=== PATIENT | female | born 1935 | race Caucasian/White ===

== ENCOUNTER → 2016-08-02 | Outpatient (CLI) | payer MEDICARE, OTHER, BC ==
--- NOTE | 2016-08-02 10:58 | REPMRS ---
Patient History The patient states she had a clinical breast exam in 07/21 Patient is postmenopausal and has history of colorectal cancer at age 78. No known family history of cancer. Taking estrogen for 9 years. Digital Woman Screen Mammo: August 02, 2016 - Exam #: [id number] Bilateral CC and MLO view(s) were taken. Technologist: Daria Perze, Technologist Prior study comparison: June 15, 2015, digital woman screen mammo performed at [facility]. June 18, 2014, left breast digital mammo diagnostic unilateral, performed at [facility]. FINDINGS: There are scattered fibroglandular densities. There has been no change in the appearance of the mammogram from the prior studies. There is a moderate amount of residual fibroglandular tissue which is fairly symmetric. There is no interval development of dominant mass, architectural distortion, or clustered microcalcification suggestive of malignancy. Scattered lymph nodes are seen in the axillae. There is a benign appearing intramammary node in the upper outer quadrant of the right breast. No significant changes when compared with prior studies. ASSESSMENT: BI-RADS/ACR category 2 mammogram. Benign finding(s). Recommendation Routine screening mammogram in 1 year (for women over age 40). This mammogram was interpreted with the aid of an FDA-approved computer-aided dectection system. A. Negative x-ray reports should not delay biopsy if a dominant or clinically suspicious mass is present. B. Four to eight percent of cancers are not identified by mammography. C. Adenosis and dense breast may obscure an underlying neoplasm. Electronically Signed By: Zachary Hooks MD 08/02/16 [id number]
== END ==
LOC: M WHC 09:28
PROVIDERS: ATTEND Obstetrics & Gynecology Gynecology
DX: Z12.31 Encounter for screening mammogram for malignant neoplasm of breast (principal)

== ENCOUNTER → 2016-09-29 | Outpatient (REF) | payer MEDICARE, OTHER | LOC: M LAB REF 11:41 | PROVIDERS: ATTEND Obstetrics & Gynecology Gynecology | DX: N39.0 Urinary tract infection, site not specified (principal) ==

== ENCOUNTER → 2016-10-06 | Outpatient (REF) | payer MEDICARE, OTHER | LOC: M LAB REF 12:37 | PROVIDERS: ATTEND Obstetrics & Gynecology Gynecology | DX: N39.0 Urinary tract infection, site not specified (principal) ==

== ENCOUNTER → 2017-10-18 | Outpatient (CLI) | payer MEDICARE, OTHER, BC | LOC: M WHC 13:00 | DX: Z12.31 Encounter for screening mammogram for malignant neoplasm of breast (principal) | CPT/HCPCS: 77067 ==

== ENCOUNTER → 2017-11-21 | Outpatient (CLI) | payer MEDICARE, OTHER, BC | LOC: M RAD 09:56 | DX: R92.2 Inconclusive mammogram (principal) | CPT/HCPCS: 77065 ==

== ENCOUNTER → 2018-07-04 | Outpatient (REF) | payer MEDICARE, OTHER ==
[2018-07-04 11:32] LABS: APPEARANCE, URINE HAZY (CLEAR); BACTERIA, URINE AUTO 3+ (NEGATIVE); BILIRUBIN, URINE AUTO NEGATIVE (NEGATIVE); BLOOD, URINE BLOOD NEGATIVE (NEGATIVE); COLOR, URINE YELLOW (YELLOW); GLUCOSE, URINE (UA) AUTO NEGATIVE (NEGATIVE); KETONE, URINE AUTO NEGATIVE (NEGATIVE); LEUKOCYTE ESTERASE, URINE AUTO NEGATIVE (NEGATIVE); NITRITE, URINE AUTO NEGATIVE (NEGATIVE); PROTEIN, URINE AUTO NEGATIVE (NEGATIVE); RBC, URINE AUTO 2 /HPF (0-3); SPECIFIC GRAVITY URINE AUTO 1.019 (1.002-1.035); SQUAMOUS EPITHELIAL CELL UR AU 6 /HPF (0-6); UROBILINOGEN, URINE AUTO 0.2 mg/dL (0.0-2.0); WBC, URINE AUTO 3 /HPF (0-3)
== END ==
LOC: M LAB REF 10:47
PROVIDERS: ATTEND Internal Medicine
DX: R39.9 Unspecified symptoms and signs involving the genitourinary system (principal)

== ENCOUNTER → 2019-06-04 | Outpatient (CLI) | payer MEDICARE, OTHER, BC ==
--- NOTE | 2019-06-04 12:17 | REP ---
BILATERAL SCREENING DIGITAL MAMMOGRAM WITH 3D TOMOSYNTHESIS: There are no palpable abnormalities or other breast complaints. The the patient states she had a clinical breast examination sep, 2018. The Tyrer-Cuzick Score is: 0.7%. The . Comparisons are 05/30/2013 and 10/18/2017 and right breast diagnostic views 11/21/2017. There are scattered areas of fibroglandular density. Of the right breast nodule identified on the screening mammogram dated 10/18/2017 was not present on the diagnostic spot compression views of 11/21/2017, therefore was likely hepatic tissue or a resolved cyst. Is not present on the study today. However, on the study today there is a new 4.4 cm nodule anteriorly in the left breast on the MLO view only. This is not identified on the CC view and cannot be identified on the CC tomograms, therefore may merely be glandular tissue. However, I would recommend follow-up diagnostic views for more assurance. There are no additional findings on 3D tomosynthesiss. Impression: BIRADS/ACR category 0 mammogram. Incomplete. Need additional imaging evaluation and / or prior mammograms for comparison. Recommendation: The patient should return for diagnostic spot compression views of the new left breast nodule on the MLO view only and left breast ultrasound depending on the findings on the diagnostic views. This mammogram was interpreted with the aid of a FDA approved computer-aided detection system. A. Negative mammogram reports should not delay biopsy if a dominant or clinically suspicious mass is present. B. Not all breast cancers are identified by mammography or tomosynthesis. C. Adenosis and dense breasts may obscure an underlying neoplasm. Patient letter M0. Electronically Signed by Guillermo Hernandez MD 06/04/2019 12:09 P
== END ==
LOC: M WHC 10:20
PROVIDERS: ATTEND Obstetrics & Gynecology Gynecology
DX: Z12.31 Encounter for screening mammogram for malignant neoplasm of breast (principal); N63.20 Unspecified lump in the left breast, unspecified quadrant

== ENCOUNTER → 2019-06-13 | Outpatient (CLI) | payer MEDICARE, OTHER, BC ==
--- NOTE | 2019-06-13 11:08 | REP ---
Digital diagnostic unilateral left breast mammography with CAD and focused left breast sonography: History: Screening mammography June 04, 2019 was BIRADS category 0 because of a 4 mm nodular opacity seen in the left superior breast on MLO projection only. This was felt to be new from October 18, 2017 and diagnostic imaging was recommended. Comparison is also made with August 02, 2016 and June 15, 2015 prior mammography. Mammographic findings: Magnified focal spot compression CC, true mediolateral, and MLO views are obtained. The nodular opacity is somewhat less conspicuous but believed to be evident on the MLO and true mediolateral oblique views. It is questionably identified on the CC view. No other mammographically significant finding. It has sharply circumscribed margins. On review of the more remote prior mammography, the MLO view of the June 2015 prior study shows a nodular opacity which is identical. It is not definitely apparent on intervening priors. Sonographic findings: The left breast is scanned sonographically about the 12 o'clock position. Heterogeneous fibroglandular background echotexture is seen. No cyst, mass or acoustic shadowing is seen. Impression: BIRADS 3: BI-RADS/ACR category 3 mammogram. Probably Benign Findings. BIRADS category 3 probably benign mammogram. Small well circumscribed 4 mm nodule 12 o'clock position left breast without sonographic correlate. Questionably visible in retrospect on 2015 prior study. 6 month followup left breast mammography recommended. This mammogram was interpreted with the aid of an FDA-approved computer-aided detection system. The patient states she had a clinical breast exam in September 2018. This patient's estimated Tyrer-Cuzick lifetime risk assessment for the breast cancer is 0.7 %.
== END ==
LOC: M WHC 09:15
PROVIDERS: ATTEND Obstetrics & Gynecology Gynecology
DX: N63.20 Unspecified lump in the left breast, unspecified quadrant (principal)

== ENCOUNTER → 2019-12-20 | Outpatient (CLI) | payer MEDICARE, OTHER | LOC: M LABSMTC 10:30 | PROVIDERS: ATTEND Pediatrics | DX: Z20.828 Contact with and (suspected) exposure to other viral communicable diseases (principal) | CPT/HCPCS: C9803; U0003 ==

== ENCOUNTER → 2020-01-09 | Outpatient (CLI) | payer MEDICARE, OTHER, BC ==
--- NOTE | 2020-02-03 09:17 | REP ---
MAMMOGRAM LEFT BREAST WITH 3D TOMOSYNTHESIS HISTORY: Six month follow up of 4 mm nodule left breast. No family history of breast cancer. Tyrer-zick lifetime risk of breast cancer is 0.7%. FINDINGS: MLO, ML, and CC views of the left breast were performed with 3D tomosynthesis. Comparison made with prior studies 06/13/2019, 06/04/2019 as well as other prior exams. Once again, there is moderate fibroglandular tissue scattered throughout the left breast. Volpara breast density is B. The previously noted subcentimeter nodule at the 12 oclock position of the left breast was again visualized on the MLO and ML views. It appears to be slightly smaller in size compared to the prior study. On the prior exam, approximately diameter was 4 mm. On the current exam, it is approximately 3 mm. No new mass or clustered microcalcifications are seen. IMPRESSION: ACR 3 probably benign. The subcentimeter nodule at the 12 oclock position of the left breast appears to have slightly decreased in size when compared to the prior study of 06/04/2019, prior measurement was 4 mm in diameter, current measurement is 3 mm in diameter. Recommend follow up bilateral mammography in May 2020. This mammogram was interpreted with the aid of an FDA approved computer aided detection system. The patient states her last clinical breast exam was February 2019. ACR 3 probably benign. Send letter 3. MTDD
== END ==
LOC: M WHC 10:46
PROVIDERS: ATTEND Obstetrics & Gynecology Gynecology
DX: R92.2 Inconclusive mammogram (principal)
CPT/HCPCS: 77065; G0279

== ENCOUNTER → 2020-05-14 | Outpatient (CLI) | payer MEDICARE, OTHER, BC ==
--- NOTE | 2020-05-14 10:54 | REPMRS ---
Patient History No known family history of cancer. Taking estrogen for 10 years. 3D TOMOSYNTHESIS WAS PERFORMED. The [facility] lifetime risk for breast cancer is 0.4%. Volpara breast density b. Diagnostic Bilateral Mammo: May 14, 2020 - Exam #: [id number] Bilateral CC and MLO view(s) were taken. Technologist: Sanaz Mackey, Technologist Prior study comparison: January 09, 2020, left breast diagnostic unilateral mammo performed at [facility]. June 13, 2019, bilateral diagnostic unilateral mammo performed at [facility]. FINDINGS: The breast tissue is heterogeneously dense. This may lower the sensitivity of mammography. The previously noted 4 mm nodule in the superior left breast has resolved and likely represented a benign cyst.] There is a moderate amount of residual fibroglandular tissue which is fairly symmetric. There is no interval development of dominant mass, areas of architectural distortion, or clustered microcalcification typical of malignancy. Assessment: BI-RADS/ACR category 1 mammogram. Negative Mammogram. Recommendation Routine screening mammogram in 1 year (for women over age 40). This mammogram was interpreted with the aid of an FDA-approved computer-aided dectection system. Electronically Signed By: Guillermo Mathews MD 05/14/20 0927
== END ==
LOC: M WHC 09:56
PROVIDERS: ATTEND Obstetrics & Gynecology Gynecology
DX: Z12.31 Encounter for screening mammogram for malignant neoplasm of breast (principal); N63.20 Unspecified lump in the left breast, unspecified quadrant
CPT/HCPCS: 77066; G0279

== ENCOUNTER → 2021-01-05 | Outpatient (CLI) | payer MEDICARE, OTHER, BC ==
[2021-01-05 15:48] LABS: APPEARANCE, URINE CLEAR (CLEAR); BACTERIA, URINE AUTO 1+ (NEGATIVE); BASO % 0.4 % (0.0-1.0); BILIRUBIN, URINE AUTO NEGATIVE (NEGATIVE); BLOOD, URINE BLOOD 1+ (NEGATIVE); COLOR, URINE STRAW (YELLOW); EOS # 0.1 10^3/uL (0.0-0.5); EOS % 1.8 % (0.0-3.0); GLUCOSE, URINE (UA) AUTO NEGATIVE (NEGATIVE); HEMATOCRIT 45.8 % (36.0-47.0); KETONE, URINE AUTO NEGATIVE (NEGATIVE); LEUKOCYTE ESTERASE, URINE AUTO 2+ (NEGATIVE); LYMPH # 2.2 10^3/uL (1.5-5.0); LYMPH % 44.1 % (24.0-44.0); MEAN CORPUSCULAR HEMOGLOBIN 30.6 pg (27.0-33.0); MEAN CORPUSCULAR HGB CONC 32.8 g/dl (32.0-36.5); MEAN CORPUSCULAR VOLUME 93.5 fl (80.0-96.0); MONO # 0.6 10^3/uL (0.0-0.8); MONO % 11.5 % (2.0-8.0); MUCUS, URINE SMALL (NEGATIVE); NEUTROPHILS # 2.1 10^3/uL (1.5-8.5); NEUTROPHILS % 42.2 % (36.0-66.0); NITRITE, URINE AUTO NEGATIVE (NEGATIVE); PLATELET COUNT, AUTOMATED 243 10^3/uL (150-450); PROTEIN, URINE AUTO NEGATIVE (NEGATIVE); RBC, URINE AUTO 0 /HPF (0-3); SPECIFIC GRAVITY URINE AUTO 1.003 (1.002-1.035); SQUAMOUS EPITHELIAL CELL UR AU 0 /HPF (0-6); UROBILINOGEN, URINE AUTO 0.2 mg/dL (0.0-2.0); WBC, URINE AUTO 14 /HPF (0-3); WHITE BLOOD COUNT 4.9 10^3/uL (4.0-10.0)
[2021-01-05 16:19] LABS: ALBUMIN 3.8 GM/DL (3.2-5.2); BILIRUBIN,TOTAL 0.5 MG/DL (0.2-1.0); CALCIUM LEVEL 9.3 MG/DL (8.8-10.2); CREATININE FOR GFR 1.05 MG/DL (0.55-1.30); GLOMERULAR FILTRATION RATE 53.2 (>32); POTASSIUM SERUM 3.3 MEQ/L (3.5-5.1); TOTAL PROTEIN 7.4 GM/DL (6.4-8.2)
== END ==
LOC: M LAB 12:43
PROVIDERS: ATTEND Internal Medicine
DX: R53.1 Weakness (principal)

== ENCOUNTER → 2021-01-21 | Outpatient (REF) | payer MEDICARE, OTHER, BC ==
[2021-01-21 12:16] LABS: APPEARANCE, URINE CLEAR (CLEAR); BILIRUBIN, URINE AUTO NEGATIVE (NEGATIVE); BLOOD, URINE BLOOD NEGATIVE (NEGATIVE); COLOR, URINE YELLOW (YELLOW); GLUCOSE, URINE (UA) AUTO NEGATIVE (NEGATIVE); KETONE, URINE AUTO NEGATIVE (NEGATIVE); LEUKOCYTE ESTERASE, URINE AUTO 3+ (NEGATIVE); NITRITE, URINE AUTO NEGATIVE (NEGATIVE); PROTEIN, URINE AUTO NEGATIVE (NEGATIVE); SPECIFIC GRAVITY URINE AUTO 1.011 (1.002-1.035); UROBILINOGEN, URINE AUTO 0.2 mg/dL (0.0-2.0)
[2021-01-21 12:18] LABS: BACTERIA, URINE AUTO NEGATIVE (NEGATIVE); RBC, URINE AUTO 1 /HPF (0-3); SQUAMOUS EPITHELIAL CELL UR AU 3 /HPF (0-6); TRANSITIONAL EPITHELIAL AUTO 3 /HPF; WBC, URINE AUTO 15 /HPF (0-3)
== END ==
LOC: M LAB REF 11:27
PROVIDERS: ATTEND Internal Medicine
DX: N39.0 Urinary tract infection, site not specified (principal)

== ENCOUNTER → 2021-02-02 | Outpatient (CLI) | payer MEDICARE, OTHER, BC ==
[2021-02-02 11:24] LABS: CALCIUM LEVEL 9.5 MG/DL (8.8-10.2); GLOMERULAR FILTRATION RATE 56.2 (>32); POTASSIUM SERUM 4.1 MEQ/L (3.5-5.1)
== END ==
LOC: M LAB 10:06
PROVIDERS: ATTEND Internal Medicine
DX: I10 Essential (primary) hypertension (principal)

== ENCOUNTER → 2021-05-04 | Outpatient (CLI) | payer MEDICARE, OTHER, BC ==
[2021-05-04 12:07] LABS: APPEARANCE, URINE CLEAR (CLEAR); BACTERIA, URINE AUTO NEGATIVE (NEGATIVE); BILIRUBIN, URINE AUTO NEGATIVE (NEGATIVE); BLOOD, URINE BLOOD NEGATIVE (NEGATIVE); COLOR, URINE STRAW (YELLOW); GLUCOSE, URINE (UA) AUTO NEGATIVE (NEGATIVE); KETONE, URINE AUTO NEGATIVE (NEGATIVE); LEUKOCYTE ESTERASE, URINE AUTO 2+ (NEGATIVE); NITRITE, URINE AUTO NEGATIVE (NEGATIVE); PROTEIN, URINE AUTO NEGATIVE (NEGATIVE); RBC, URINE AUTO 0 /HPF (0-3); SPECIFIC GRAVITY URINE AUTO 1.004 (1.002-1.035); SQUAMOUS EPITHELIAL CELL UR AU 1 /HPF (0-6); UROBILINOGEN, URINE AUTO 0.2 mg/dL (0.0-2.0); WBC, URINE AUTO 3 /HPF (0-3)
== END ==
LOC: M LAB 11:25
PROVIDERS: ATTEND Internal Medicine
DX: N39.0 Urinary tract infection, site not specified (principal)

== ENCOUNTER → 2021-06-29 | Outpatient (CLI) | payer MEDICARE, OTHER, BC | LOC: M WHC 08:46 | PROVIDERS: ATTEND Specialist | DX: Z12.31 Encounter for screening mammogram for malignant neoplasm of breast (principal); Z85.038 Personal history of other malignant neoplasm of large intestine ==

== ENCOUNTER → 2021-12-28 | Outpatient (REF) | payer MEDICARE, OTHER, BC ==
[2021-12-28 10:01] LABS: APPEARANCE, URINE MANUAL CLEAR (CLEAR); BILIRUBIN, URINE MANUAL NEGATIVE (NEGATIVE); BLOOD URINE MANUAL TRACE (NEGATIVE); COLOR, URINE MANUAL YELLOW (YELLOW); GLUCOSE, URINE (UA) MANUAL NEGATIVE (NEGATIVE); KETONE, URINE MANUAL NEGATIVE (NEGATIVE); LEUKOCYTE ESTERASE, URINE MAN POSITIVE (NEGATIVE); NITRITE, URINE MANUAL NEGATIVE (NEGATIVE); PROTEIN, URINE MANUAL NEGATIVE (NEGATIVE); UROBILINOGEN, URINE MANUAL NORMAL (NORMAL)
[2021-12-28 10:19] LABS: BACTERIA, URINE SMALL AMOUNT; HYALINE CAST, URINE NONE SEEN /lpf (0-1); SQUAMOUS EPITHELIAL CELL URINE SMALL AMOUNT /hpf (SMALL AMT)
== END ==
LOC: M LAB REF 09:15
PROVIDERS: ATTEND Internal Medicine
DX: R53.1 Weakness (principal)

== ENCOUNTER → 2022-09-08 | Outpatient (CLI) | payer MEDICARE, BC, OTHER | LOC: M WHC 12:03 | PROVIDERS: ATTEND Internal Medicine | DX: Z12.31 Encounter for screening mammogram for malignant neoplasm of breast (principal) ==

== ENCOUNTER → 2022-12-27 | Outpatient (REF) | payer MEDICARE, BC, OTHER | LOC: M SFHCDERM 17:17 | PROVIDERS: ATTEND Dermatology | DX: L57.8 Other skin changes due to chronic exposure to nonionizing radiation (principal) ==